=== PATIENT | female | born 1985 | race Caucasian/White ===

== ENCOUNTER 2018-01-08 09:23 | Inpatient (IN) | payer OTHER ==
[~2018-01-08] VITALS: Ht 157.5 cm; Wt 67.0 kg
[~2018-01-08 09:23] MED LIST: BUSP5TAB3 PO; HYDR-569 PO; ONDA4TAB6 PO; ONDA8TAB9 PO
[2018-01-08 10:07] LABS: BASOPHILS % (AUTO) 0.2 % (0-1); EOSINOPHILS # (AUTO) 0.1 X10'3 (0-0.9); EOSINOPHILS % (AUTO) 0.3 % (0-6); HEMATOCRIT 40.8 % (35.0-45.0); HEMOGLOBIN 14.1 g/dl (12.0-16.0); LYMPHOCYTES % (AUTO) 5.3 % (21-51); MEAN CORPUSCULAR HEMOGLOBIN 32.6 PG (27.0-31.0); MEAN CORPUSCULAR HGB CONC 34.7 % (33.0-36.5); MEAN PLATELET VOLUME 7.9 FL (7.4-10.4); MONOCYTES # (AUTO) 0.5 X10'3 (0-0.9); MONOCYTES % (AUTO) 2.5 % (2-12); NEUTROPHILS # (AUTO) 18.1 X10'3 (1.8-7.7); NEUTROPHILS % (AUTO) 91.7 % (42-75); PLATELET COUNT 254 X10'3 (140-440); RED BLOOD COUNT 4.34 X10'6 (4.20-5.60); RED CELL DISTRIBUTION WIDTH 12.5 % (11.5-14.5); WHITE BLOOD COUNT 19.7 X10'3 (4.5-11.0)
[2018-01-08] MEDS ORDERED: normal saline 1000ML IV soln IVB ONE (10:10)
[2018-01-08] MEDS ORDERED: ondansetron/PF 4mg/2ml inj IV ONE (10:10)
[2018-01-08 10:15] LABS: PROTHROMBIN TIME 10.6 SECONDS (9.0-12.0)
[2018-01-08 10:22] LABS: ALANINE AMINOTRANSFERASE 14 U/L (12-78); ALBUMIN 3.2 G/DL (3.4-5.0); ALBUMIN/GLOBULIN RATIO 0.8 (1.1-1.5); ALKALINE PHOSPHATASE 75 IU/L (46-116); ANION GAP 11 (8-16); ASPARTATE AMINO TRANSFERASE 9 U/L (10-37); BILIRUBIN,TOTAL 0.3 MG/DL (0.1-1.0); BLOOD UREA NITROGEN 7 MG/DL (7-18); BUN/CREATININE RATIO 9.1 (6.6-38.0); CALCIUM 8.6 MG/DL (8.5-10.1); CHLORIDE 102 MMOL/L (99-107); CREATININE 0.77 MG/DL (0.40-0.90); GLUCOSE 129 MG/DL (70-104); POTASSIUM 3.5 MMOL/L (3.5-5.1); SODIUM 136 MMOL/L (135-145); TOTAL CARBON DIOXIDE 23.3 MMOL/L (24-32); TOTAL PROTEIN 7.1 G/DL (6.4-8.2); eGFR 88 ML/MIN
[2018-01-08] MEDS: morphine 4 MG/ML inj SYRINge IV PRN ×2 (10:22→12:50)
[2018-01-08 10:24] LABS: CLARITY,URINE SLIGHTLY CLOUDY (Clear); COLOR,URINE YELLOW (Yellow); GLUCOSE, URINE NEGATIVE (Neg); KETONES,URINE 40 mg/dl (Neg); LEUKOCYTE ESTERASE ,URINE NEGATIVE (Neg); NITRITES, URINE NEGATIVE (Neg); OCCULT BLOOD,URINE TRACE-LYSED (Neg); PROTEIN,URINE NEGATIVE (Neg); URINE HCG NEGATIVE (NEG); UROBILINOGEN,URINE 0.2 E.U/dL (0.2-1.0)
[2018-01-08 10:27] LABS: UA COLLECTION TYPE CLN CATCH MIDSTREAM
[2018-01-08 10:30] LABS: BACTERIA,URINE 1+ /HPF (Neg); MUCUS STRANDS FEW /LPF (Neg); RBC,URINE 0-2 /HPF (0-2); SQUAMOUS EPITHELIAL CELL,UR MANY /LPF (FEW); WBC,URINE 0-4 /HPF (0-4)
[2018-01-08 10:32] LABS: PLATELET ESTIMATE NORMAL; TOTAL CELLS COUNTED 100
[2018-01-08 11:14] LABS: LIPASE 127 U/L (73-393)
[2018-01-08] MEDS ORDERED: acetaminophen 325mg tablet PO ONE (11:35)
[2018-01-08] MEDS ORDERED: CIPR-230 PO (13:24)
[2018-01-08] MEDS ORDERED: ciprofloxacin 250mg tablet PO ONE (13:25)
[2018-01-08] MEDS ORDERED: NO HOME MEDS (13:37)
[2018-01-08] MEDS ORDERED: potassium Cl 40MEQ/NS 500ml 500 ML IV PRN ×2 (13:50)
[2018-01-08] MEDS ORDERED: acetaminophen 325mg tablet PO PRN (13:50)
[2018-01-08] MEDS ORDERED: magnesium 4gm in 100ml NS 100 ML IV PRN (13:50)
[2018-01-08] MEDS ORDERED: potassium Cl 20 mEq SR tablet PO PRN ×2 (13:50)
[2018-01-08] MEDS ORDERED: acetaminophen 650mg rectal suppository RC PRN (13:50)
[2018-01-08] MEDS ORDERED: HYDROmorphone 1 mg/ml syringe IV PRN ×2 (13:50)
[2018-01-08] MEDS ORDERED: mag hydrox/Alum hydrox/simeth 30ml oral suspension PO PRN (13:50)
[2018-01-08] MEDS ORDERED: magnesium 1gm/100ml D5W IVPB 100 ML IV PRN (13:50)
[2018-01-08] MEDS ORDERED: ondansetron/PF 4mg/2ml inj IV PRN (13:50)
[2018-01-08] MEDS ORDERED: ipratropium/albuterol 3ml nebule NEB PRN (14:00)
[2018-01-08] MEDS: normal saline 1000ml 1,000 ML IV SCH ×2 (15:03→21:49)
[2018-01-08] MEDS: metroNIDAZOLE-Flagyl 500mg/NS 100 ML IV SCH (15:59)
[2018-01-08 17:05] VITALS: BP 114/57
[2018-01-08] MEDS: ciprofloxacin lact 400MG/200ML 200 ML IV SCH (19:49)
[2018-01-08 19:56] LABS: OCCULT BLOOD STOOL POSITIVE (Neg)
[2018-01-08] MEDS ORDERED: morphine 4 MG/ML inj SYRINge IV PRN (21:30)
[2018-01-08] MEDS: proCHLORperazine 10 MG/2 ml inj IV PRN (21:43)
[2018-01-08] MEDS: morphine 2 MG/ML inj. syringe IV PRN (21:43)
[2018-01-08 22:00] VITALS: BP 114/64
[2018-01-09] MEDS: metroNIDAZOLE-Flagyl 500mg/NS 100 ML IV SCH ×2 (00:04→08:02)
[2018-01-09] MEDS: normal saline 1000ml 1,000 ML IV SCH (02:25)
[2018-01-09] MEDS: proCHLORperazine 10 MG/2 ml inj IV PRN (04:46)
[2018-01-09] MEDS: morphine 2 MG/ML inj. syringe IV PRN (04:46)
[2018-01-09 05:42] LABS: BASOPHILS % (AUTO) 0.2 % (0-1); EOSINOPHILS # (AUTO) 0.2 X10'3 (0-0.9); EOSINOPHILS % (AUTO) 1.7 % (0-6); HEMATOCRIT 33.2 % (35.0-45.0); HEMOGLOBIN 11.4 g/dl (12.0-16.0); LYMPHOCYTES # (AUTO) 1.8 X10'3 (1.1-4.8); LYMPHOCYTES % (AUTO) 15.3 % (21-51); MEAN CORPUSCULAR HEMOGLOBIN 32.3 PG (27.0-31.0); MEAN CORPUSCULAR HGB CONC 34.4 % (33.0-36.5); MEAN CORPUSCULAR VOLUME 93.9 FL (78-98); MEAN PLATELET VOLUME 8.5 FL (7.4-10.4); MONOCYTES # (AUTO) 0.5 X10'3 (0-0.9); MONOCYTES % (AUTO) 3.9 % (2-12); NEUTROPHILS # (AUTO) 9.2 X10'3 (1.8-7.7); NEUTROPHILS % (AUTO) 78.9 % (42-75); PLATELET COUNT 191 X10'3 (140-440); RED BLOOD COUNT 3.53 X10'6 (4.20-5.60); RED CELL DISTRIBUTION WIDTH 12.8 % (11.5-14.5); WHITE BLOOD COUNT 11.6 X10'3 (4.5-11.0)
[2018-01-09 06:00] VITALS: BP 104/65
[2018-01-09 06:11] LABS: ALANINE AMINOTRANSFERASE 11 U/L (12-78); ALBUMIN 2.4 G/DL (3.4-5.0); ALBUMIN/GLOBULIN RATIO 0.8 (1.1-1.5); ALKALINE PHOSPHATASE 50 IU/L (46-116); ANION GAP 9 (8-16); ASPARTATE AMINO TRANSFERASE 10 U/L (10-37); BILIRUBIN,TOTAL 0.2 MG/DL (0.1-1.0); BLOOD UREA NITROGEN 4 MG/DL (7-18); CALCIUM 7.8 MG/DL (8.5-10.1); CHLORIDE 107 MMOL/L (99-107); CREATININE 0.57 MG/DL (0.40-0.90); GLUCOSE 100 MG/DL (70-104); MAGNESIUM 1.6 MG/DL (1.5-2.4); POTASSIUM 3.2 MMOL/L (3.5-5.1); SODIUM 139 MMOL/L (135-145); TOTAL CARBON DIOXIDE 22.8 MMOL/L (24-32); TOTAL PROTEIN 5.5 G/DL (6.4-8.2); eGFR > 90 ML/MIN
[2018-01-09] MEDS ORDERED: K and/or MAG REPLACEMENT MC SCH (08:00)
[2018-01-09] MEDS: ciprofloxacin lact 400MG/200ML 200 ML IV SCH (08:02)
[2018-01-09 09:55] LABS: C DIFF ANTIGEN NEGATIVE (NEGATIVE); C DIFF SPECIMEN=DIARRHEA? ACCEPTABLE; C DIFFICILE TOXINS A&B NEGATIVE (Neg)
[2018-01-09] MEDS ORDERED: METR500T4 PO (12:18)
[2018-01-09] MEDS ORDERED: ONDA4TAB12 PO (12:18)
[2018-01-09] MEDS ORDERED: LEVO500T89 PO (12:18)
== END 2018-01-09 14:00 | disposition home or self-care (01) | DRG 872 ==
LOC: ER 09:24 → ED HOLD 13:49 → ORTHO 4S 14:27
PROVIDERS: ADMIT Family Medicine; ATTEND Family Medicine
DX: A41.9 Sepsis, unspecified organism (principal); J45.909 Unspecified asthma, uncomplicated; F17.210 Nicotine dependence, cigarettes, uncomplicated; K52.9 Noninfective gastroenteritis and colitis, unspecified
CPT/HCPCS: 36415; 74176; 80053; 81001; 81025; 82272; 83605; 83690; 83735; 85025; 85610; 87040; 87045; 87046; 87070; 87324; 87449; 89055; 94760; 96361; 96374; 99285; J0744; J0780; J1170; J2270; J2405; J3490; J7030

== ENCOUNTER 2024-07-21 17:56 | Emergency (ER) | payer BC, OTHER ==
[~2024-07-21] VITALS: Ht 157.5 cm; Wt 73.1 kg
[~2024-07-21 17:56] MED LIST changes: -BUSP5TAB3 PO; -HYDR-569 PO; +ONDA-243 PO; -ONDA4TAB6 PO; -ONDA8TAB9 PO
[2024-07-21 18:08] VITALS: PULSE 91
[2024-07-21] MEDS: ondansetron 4mg rapidly disintigrating tab PO ONE (19:33)
[2024-07-21] MEDS: HYDROcodone/acetaminophen 10/325mg tab PO ONE (19:33)
[2024-07-21 19:43] VITALS: RESP 18
== END 2024-07-21 19:45 | disposition home or self-care (01) ==
LOC: ER 17:57
DX: S93.402A Sprain of unspecified ligament of left ankle, initial encounter (principal); W08.XXXA Fall from other furniture, initial encounter; Y93.89 Activity, other specified; Y92.89 Other specified places as the place of occurrence of the external cause; Y99.8 Other external cause status
CPT/HCPCS: 73610; 73630; 99284; L4360

== ENCOUNTER 2024-10-09 18:37 | Emergency (ER) | payer BC, OTHER ==
[~2024-10-09] VITALS: Ht 154.9 cm; Wt 75.3 kg
[2024-10-09 18:53] VITALS: PULSE 70; RESP 16; TEMP 97.8; O2SAT 99
--- NOTE | 2024-10-09 18:57 | ELECTROCARDIOGRAPH REPORT ---
[facility] Test Date: 2024-10-09 Test Time: 18:54:18 Pat Name: TRACEY CARRION Department: EMERGENCY ROOM Room: Gender: F Online Journalist: MAITE : 1985 Requested By: VLADIMIR HANLEY Order Number: [id number] Reading MD: Measurements Intervals Foley Rate: 78 P: 49 SC: 147 QRS: 78 QRSD: 90 T: 46 QT: 386 QTc: 440 Interpretive Statements Sinus rhythm Baseline wander in lead(s) V4 Please click the below link to view image of tracing.
== END 2024-10-10 01:23 | disposition left against medical advice (07) ==
LOC: ER 18:37
DX: R42 Dizziness and giddiness (principal); Z53.21 Procedure and treatment not carried out due to patient leaving prior to being seen by health care provider
CPT/HCPCS: 82948; 93005